=== PATIENT | female | born 1955 | race Caucasian/White ===

== ENCOUNTER 2016-08-01 11:33 | Outpatient (CLI) | payer OTHER ==
[2016-08-01 11:53] LABS: BASOPHILS % 0.5 (0.0-1.5); EOSINOPHILS % 3.1 % (0.0-6.8); MEAN CORPUSCULAR HEMOGLOBIN 32.2 pg (28.0-34.0); MEAN CORPUSCULAR VOLUME 96.1 fl (80.0-100.0); MONOCYTES % 6.4 % (0.0-11.0); NEUTROPHILS # 3.7 # k/uL (1.4-7.7)
[2016-08-01 12:18] LABS: eGFR (African) > 60; eGFR (Non-African) > 60
== END 2016-08-01 11:34 ==
LOC: LAB 11:33
PROVIDERS: ATTEND Family Medicine
DX: I10 Essential (primary) hypertension (principal); G60.9 Hereditary and idiopathic neuropathy, unspecified; Z11.59 Encounter for screening for other viral diseases
CPT/HCPCS: 36415; 80053; 80061; 84436; 84443; 84479; 85025; 86803

== ENCOUNTER 2016-08-27 18:41 | Emergency (ER) | payer OTHER ==
[2016-08-27] MEDS ORDERED: Lidocaine 1% 5ml(IM or SUTURE)(PAIN CLINIC) ONE (19:25)
[2016-08-27] MEDS ORDERED: DIPH,PERTUSS(ACELL),TET VAC/PF 0.5 ML DISP.SYRIN IM ONE (19:52)
[2016-08-27] MEDS ORDERED: Lidocaine 1% 5ml(IM or SUTURE)(PAIN CLINIC) IJ ONE (19:53)
[2016-08-27] MEDS ORDERED: TRIPLE ANTIBIOTIC OINTMENT PAC 1 PACKET TOP STA (19:53)
--- NOTE | 2016-08-27 21:05 | ED Physician Documentation ---
Fall - HISTORIAN Historian: patient, spouse - HPI Stated Complaint: fall Chief Complaint: Fall Additional Information: tripoped fell w 1"lac mid forehead--ethanol on board Onset: today (1800) Where: park Context: lost balance r: moderate Associated Symptoms:: no loss of consciousness Location of Pain/Injury: head. denies: neck Injury to Right Extremity: none Injury to Left Extremity: none Further Comments: yes - ROS CONST: no problems ( intox) MS/SKIN/LYMPH: denies: weakness, numbness, neck pain, back pain EYES/ENT: none CVS/RESP: none GI/: denies: nausea, vomiting - PAST HX Past History: other (htn) Allergies/Adverse Reactions: Allergies Allergy/AdvReac Type Severity Reaction Status Date / Time amoxicillin trihydrate Allergy Verified 08/27/16 18:56 [From Augmentin] cefazolin sodium Allergy Verified 08/27/16 18:56 [From Kefzol] gentamicin [Gentamicin] Allergy Verified 08/27/16 18:56 potassium clavulanate Allergy Verified 08/27/16 18:56 [From Augmentin] Home Medications: Ambulatory Orders Medication Instructions Recorded Aspirin [Aspir-Low] 81 mg PO DAILY u2 06/14/14 Atorvastatin Calcium [Lipitor] 10 mg PO DAILY u2 06/14/14 Calcium Carbonate/Vitamin D3 1 each PO BID u2 06/14/14 [Calcium + Vitamin D Tablet] Cholecalciferol (Vitamin D3) 2,000 unit PO DAILY av 06/14/14 [Vitamin D3] Flaxseed Oil [Flax Seed Oil] 1,000 mg PO DAILY av 06/14/14 Lisinopril 20Mg [Prinivil] 20 mg PO DAILY u2 06/14/14 Lutein 20 mg PO DAILY av 06/14/14 Multivitamin [Multi-Vitamin Daily] 1 each PO HS u2 06/14/14 Hazel[place]-3 Fatty Acids/Fish Oil 1 each PO BID 06/14/14 [[place] 3 Fish Oil Softgel] Omeprazole 20 mg PO DAILY 06/14/14 Ubidecarenone/Vit E Acetate [Co 1 each PO DAILY av 06/14/14 Q-10 100 Mg Softgel] - SOCIAL HX Smoking History: less than 1 pack/day Alcohol Use: heavy Drug Use: none - FAMILY HX Family History: no significant history - VITAL SIGNS Vital Signs: Vital Signs Temp Pulse Resp BP Pulse Ox 98.1 F 100 H 14 106/72 98 08/27/16 18:49 08/27/16 18:49 08/27/16 18:49 08/27/16 18:49 08/27/16 18:49 - REVIEWED ASSESSMENTS Nursing Assessment Reviewed: Yes Vitals Reviewed: Yes Procedures Wound Location: head Wound's Depth, Shape: into muscle, linear, irregular Wound Explored: no foreign body removed Betadine Prep?: Yes Anesthesia: 1% Lidocaine Wound Repaired With: sutures Suture Size/Type: 4:0 Number of Sutures: 5 Layer Closure?: No Deep Layer Suture Size/Type: 4:0 Sterile Dressing Applied?: Yes ED Results Lab/Radiology - Orders Orders: ED Orders Category Date Time Status CT BRAIN W & W/O CON Stat Exams 08/27/16 Ordered Diph,Pertuss(Acell),Tet Vac/Pf [Adacel] Med 08/27/16 19:52 Once 0.5 ml IM .ONCE ONE Lidocaine 1% 5ml(IM or SUTURE) [Xylocaine] Med 08/27/16 19:25 Discontinued 50 mg .ROUTE .STK-MED ONE Lidocaine 1% 5ml(IM or SUTURE) [Xylocaine] Med 08/27/16 19:53 Once 50 mg IJ NOW ONE Triple Antibiotic Ointment Pac [Neosporin Packet] Med 08/27/16 19:53 Stat 1 packet TOP 1T STA Fall Physical Exam - Physical Exam General Appearance: mild distress Head: trauma (1" lac) Neck: non-tender, painless ROM Eye: ANISHA, EOMI ENT: nml external inspection Resp/CVS: chest non-tender, no ecchymosis, breath sounds nml, no resp. distress , heart sounds nml Abdomen: soft, non-tender Neuro: oriented x3, sensation nml, motor nml. No: mood/affect nml (intocicated present) Skin: color nml, no rash. No: cyanosis, diaphoresis Back: normal inspection Extremities: atraumatic (slight abrasion) Joint: joints nml, nml ROM - Debbie Coma Score Eyes Open: Spontaneous Speech: Oriented Motor: Obeys Commands Discharge Clincal Impression: fall w/head laceration, ethanol usage Referrals: Christo Kellogg MD [Primary Care Provider] - 2 Days Home Medications: Ambulatory Orders Aspirin [Aspir-Low] 81 mg PO DAILY u2 06/14/14 Atorvastatin Calcium [Lipitor] 10 mg PO DAILY u2 06/14/14 Calcium Carbonate/Vitamin D3 [Calcium + Vitamin D Tablet] 1 each PO BID u2 08/23 Cholecalciferol (Vitamin D3) [Vitamin D3] 2,000 unit PO DAILY av 06/14/14 Flaxseed Oil [Flax Seed Oil] 1,000 mg PO DAILY av 06/14/14 Lisinopril 20Mg [Prinivil] 20 mg PO DAILY u2 06/14/14 Lutein 20 mg PO DAILY av 06/14/14 Multivitamin [Multi-Vitamin Daily] 1 each PO HS u2 06/14/14 Hazel[place]-3 Fatty Acids/Fish Oil [[place] 3 Fish Oil Softgel] 1 each PO BID 06/14/14 Omeprazole 20 mg PO DAILY 06/14/14 Ubidecarenone/Vit E Acetate [Co Q-10 100 Mg Softgel] 1 each PO DAILY av Comments: cleansed w/ betadine exop for body inf w/lidocaine furthur irrigate w/betadine and exp for body approx w/ 5 - 4o sutures sterile dressing chg dressing prn sutures out approx 4 days Condition: Good Disposition: 01 HOME, SELF-CARE Decision to Admit: NO Decision Time: 21:04
[2016-08-27 23:17] VITALS: BP 104/84
--- NOTE | 2016-08-28 06:40 | Diagnostic Imaging Report ---
VERA STONE~ [facility] [address] [facility] [address] ~ ~ ~ ~ Report Submission Date: Aug 27, 2016 8:17:59 PM CDT Patient ~ Study Name: MARTA BARRY ~ Date: Aug 27, 2016 7:59:12 PM CDT ~ Modality Type: CT\SR Gender: F ~ Description: CT BRAIN W/O CONTRAST : 59 ~ Institution: [facility] Physician: VERA STONE ~ ~ ~ ~ Examination: CT head without contrast History: Fall Comparison exam: None available Technique: Noncontrast head CT protocol. Findings: Ventricles and sulci are appropriate for patient age. Cerebrocerebellar parenchyma demonstrates normal attenuation. No evidence for parenchymal hemorrhage. No evidence for mass or mass effect. No midline shift. No extra axial fluid collections. Partial visualization of the paranasal sinuses , mastoid air cells, orbits, and skull without gross regularity. Anterior soft tissue hematoma. Impression: No acute parenchymal process. No hemorrhage. Soft tissue hematoma ~ Electronically signed on Aug 27, 2016 8:17:59 PM CDT by: Jaquan Khan ST. [facility] HOSPITALLeslee
== END 2016-08-27 21:20 | disposition home or self-care (01) ==
LOC: ED 18:41
DX: S09.90XA Unspecified injury of head, initial encounter (principal); X58.XXXA Exposure to other specified factors, initial encounter; Y93.9 Activity, unspecified; Y99.9 Unspecified external cause status; F19.90 Other psychoactive substance use, unspecified, uncomplicated
CPT/HCPCS: 12001; 70470; 90471; 99283

== ENCOUNTER 2017-09-03 08:43 | Outpatient (CLI) | payer OTHER ==
--- NOTE | 2017-09-03 11:23 | Diagnostic Imaging Report ---
NEREYDA JOVEL [facility] [address] [facility] [address] [address] Report Submission Date: Sep 03, 2017 9:30:50 AM CDT Patient Study Name: MARTA BARRY Date: Sep 03, 2017 8:58:26 AM CDT Modality Type: US Gender: O Description: : Institution: [facility] Physician: NEREYDA JOVEL Examination: Ultrasound aorta History: Evaluate for aneurysm Comparison exams: None available Findings: Proximal aorta measures 2.5 cm maximally. Mid aorta measures 1.8 cm maximally. Distal aorta measures 1.7 cm maximally. Iliac vessels measure 0.8 cm. No peripheral calcification or thrombus. Impression: No evidence for abdominal aortic aneurysm Electronically signed on Sep 03, 2017 9:30:50 AM CDT by: Jaquan ELLIOTT
== END 2017-09-03 08:44 ==
LOC: RAD 08:43
PROVIDERS: ATTEND Family Medicine
DX: Z13.6 Encounter for screening for cardiovascular disorders (principal)
CPT/HCPCS: 76705

== ENCOUNTER 2018-11-26 09:01 | Outpatient (CLI) | payer OTHER ==
[2018-11-26 09:40] LABS: eGFR (Non-African) 43
[2018-11-26 09:41] LABS: HDL 68 mg/dL (>40)
== END 2018-11-26 09:03 ==
LOC: LAB 09:01
PROVIDERS: ATTEND Family Medicine
DX: Z00.00 Encounter for general adult medical examination without abnormal findings (principal); I10 Essential (primary) hypertension
CPT/HCPCS: 36415; 80053; 80061

== ENCOUNTER 2018-12-10 15:19 | Outpatient (CLI) | payer OTHER ==
--- NOTE | 2018-12-22 16:13 | Diagnostic Imaging Report ---
DAMEON MARSHALL [facility] [address] [facility] [address] Report Submission Date: Dec 10, 2018 4:18:04 PM CDT Patient Study Name: MARTA BARRY Date: Dec 10, 2018 3:24:26 PM CDT Modality Type: US Gender: F Description: US LLE VENOUS : 59 Institution: [facility] Physician: DAMEON MARSHALL Examination: Ultrasound left vein History: ANKEL SWELLING PATIENT CLAIMS ANKLE HAS BEEN SWOLLEN FOR OVER A WEEK, TAKES A BABY ASPRIN A DAY Findings: Sonographic evaluation of the left lower extremity venous system from the groin to the popliteal fossa inclusive. Normal compressibility. No luminal filling defect. Normal waveforms and response to augmentation. No popliteal region fluid collection. Impression: No evidence for deep venous thrombosis. Electronically signed on Dec 10, 2018 4:18:04 PM CDT by: Jaquan ELLIOTT
== END 2018-12-10 15:30 ==
LOC: RAD 15:19
PROVIDERS: ATTEND Family Medicine
DX: M79.89 Other specified soft tissue disorders (principal)
CPT/HCPCS: 93971

== ENCOUNTER 2018-12-16 09:55 | Outpatient (CLI) | payer OTHER ==
[2018-12-25 09:35] LABS: BASOPHILS % 0.6 % (0.0-1.5); NEUTROPHILS # 2.7 # k/uL (1.4-7.7); eGFR (Non-African) > 60
== END 2018-12-16 10:05 ==
LOC: LAB 09:55
PROVIDERS: ATTEND Family Medicine
DX: R79.9 Abnormal finding of blood chemistry, unspecified (principal)
CPT/HCPCS: 36415; 80053; 85025